=== PATIENT | female | born 1940 | race Caucasian/White ===

== ENCOUNTER 2017-05-03 08:10 | Day surgery (SDC) | payer OTHER, MEDICAID ==
[2017-05-03] MEDS ORDERED: NS 500 ML IV 500 ML IV ONE (08:34)
[2017-05-03] MEDS ORDERED: TETRACAINE 0.5% OPHTH 1 DOSE AFFEYE ONE ×2 (08:35→12:40)
[2017-05-03] MEDS ORDERED: VIGAMOX 0.5% OPHTH 1 DOSE AFFEYE ONE ×5 (08:40→13:10)
[2017-05-03] MEDS ORDERED: PROLENSA OPHTH 1 DOSE AFFEYE ONE (08:51)
[2017-05-03] MEDS ORDERED: ALPHAGAN-P OPHTH 1 DOSE AFFEYE ONE (08:52)
[2017-05-03] MEDS ORDERED: CYCLOGYL 1% OPHTH 1 DOSE OP ONE ×3 (08:53→08:55)
[2017-05-03] MEDS ORDERED: AK-DILATE 2.5% OPHTH 1 DOSE OP ONE ×3 (08:53→08:55)
[2017-05-03] MEDS ORDERED: MYDRIACIL OPHTH 1 DOSE AFFEYE ONE ×3 (08:53→08:55)
[2017-05-03] MEDS ORDERED: BSS OPHTH (PLAIN) 500 ML with VANCOMYCIN HCL 500 MG VIAL 25 MG, ADRENALINE CHL INJ 1 MG IR ONE ×6 (12:35)
[2017-05-03] MEDS ORDERED: BETADINE OPHTH SOLN 5% EACHEYE ONE (12:40)
[2017-05-03] MEDS ORDERED: XYLOCAINE-MPF 1% IJ ONE ×2 (12:40→12:55)
[2017-05-03] MEDS ORDERED: ADRENALINE CHL INJ IJ ONE ×2 (12:40→12:55)
[2017-05-03] MEDS ORDERED: DUOVISC IO ONE ×2 (12:40→12:55)
[2017-05-03 13:33] VITALS: BP 133/72
[2017-05-03] MEDS ORDERED: DIPRIVAN VIAL ONE (15:51)
== END 2017-05-03 13:34 | disposition home or self-care (01) ==
LOC: SURG1 08:10
PROVIDERS: ATTEND Ophthalmology
PROC: 08RJ3JZ Replacement of Right Lens with Synthetic Substitute, Percutaneous Approach (ICD-10-PCS; principal; 2017-05-03 12:15)
PROC: 08DJ3ZZ Extraction of Right Lens, Percutaneous Approach (ICD-10-PCS; principal; 2017-05-03 12:15)
DX: H25.11 Age-related nuclear cataract, right eye (principal); H52.221 Regular astigmatism, right eye
CPT/HCPCS: 99100; A4217; J0170; J3370; J3490

== ENCOUNTER 2017-05-24 11:10 | Day surgery (SDC) | payer OTHER, MEDICAID ==
[2017-05-24] MEDS ORDERED: TETRACAINE 0.5% OPHTH 1 DOSE AFFEYE ONE ×2 (11:20→13:42)
[2017-05-24] MEDS ORDERED: NS 500 ML IV 500 ML IV ONE (11:20)
[2017-05-24] MEDS ORDERED: VIGAMOX 0.5% OPHTH 1 DOSE AFFEYE ONE ×5 (11:25→14:05)
[2017-05-24] MEDS ORDERED: PROLENSA OPHTH 1 DOSE AFFEYE ONE (11:36)
[2017-05-24] MEDS ORDERED: ALPHAGAN-P OPHTH 1 DOSE AFFEYE ONE (11:37)
[2017-05-24] MEDS ORDERED: AK-DILATE 2.5% OPHTH 1 DOSE OP ONE ×3 (11:38→11:40)
[2017-05-24] MEDS ORDERED: MYDRIACIL OPHTH 1 DOSE AFFEYE ONE ×3 (11:38→11:40)
[2017-05-24] MEDS ORDERED: CYCLOGYL 1% OPHTH 1 DOSE OP ONE ×3 (11:38→11:40)
[2017-05-24] MEDS ORDERED: BETADINE OPHTH SOLN 5% EACHEYE ONE (13:42)
[2017-05-24] MEDS ORDERED: DUOVISC IO ONE (13:49)
[2017-05-24] MEDS ORDERED: ADRENALINE CHL INJ IJ ONE (13:49)
[2017-05-24] MEDS ORDERED: XYLOCAINE-MPF 1% IJ ONE (13:49)
[2017-05-24] MEDS ORDERED: BSS OPHTH (PLAIN) 500 ML with VANCOMYCIN HCL 500 MG VIAL 25 MG, ADRENALINE CHL INJ 1 MG IR ONE ×3 (13:52)
[2017-05-24] MEDS ORDERED: VERSED ONE (14:14)
[2017-05-24] MEDS ORDERED: DIPRIVAN VIAL ONE (14:14)
[2017-05-24 15:39] VITALS: BP 121/75
== END 2017-05-24 14:35 | disposition home or self-care (01) ==
LOC: SURG1 11:10
PROVIDERS: ATTEND Ophthalmology
PROC: 08RK3JZ Replacement of Left Lens with Synthetic Substitute, Percutaneous Approach (ICD-10-PCS; principal; 2017-05-24 16:45)
PROC: 08DK3ZZ Extraction of Left Lens, Percutaneous Approach (ICD-10-PCS; principal; 2017-05-24 16:45)
DX: H25.12 Age-related nuclear cataract, left eye (principal); H25.012 Cortical age-related cataract, left eye; H52.222 Regular astigmatism, left eye
CPT/HCPCS: 99100; A4217; J0170; J2250; J3370; J3490